=== PATIENT | female | born 1945 | race Caucasian/White ===

== ENCOUNTER → 2018-02-15 10:06 | Outpatient (CLI) | payer MEDICARE, SELFPAY ==
[2018-02-15 10:33] LABS: Add Manual Diff / Slide Review NO; Basophils Percent Auto 1.1 % (0-2); Hematocrit 44.1 % (36-46); Hemoglobin 15.2 g/dL (12.0-16.0); Lymphocytes Percent Auto 35.4 % (25-40); Mean Corpuscular HGB Conc 34.4 % (30-36); Mean Corpuscular Hemoglobin 29.1 PG (26-34); Mean Corpuscular Volume 84.7 fL (80-100); Monocytes Percent Auto 10.3 % (3-14); Neutrophils Absolute Auto 2200 /uL (3000-5900); Neutrophils Percent Auto 48.2 % (50-75); Platelet Count 191 X10^3/uL (150-400); Red Blood Cell Count 5.21 X10^6/uL (4.0-5.2); White Blood Cell Count 4.5 X10^3/uL (4.5-11.0)
[2018-02-15 11:18] LABS: Alanine Aminotransferase 37 IU/L (9-52); Albumin 4.4 g/dL (3.5-5.0); Albumin Globulin Ratio 1.5 (1.0-2.8); Alkaline Phosphatase 56 U/L (38-126); Aspartate Aminotransferase 32 IU/L (14-36); BUN Creatinine Ratio 21.4 (6-22); Bilirubin Total 1.3 mg/dL (0.2-1.3); Calcium 9.4 mg/dL (8.4-10.2); Creatine Kinase 43 U/L (30-135); Estimated Glomerular Filt Rate > 60.0 mL/min (>60); Globulin 2.9 g/dL (1.7-4.1); Glucose 109 mg/dL (80-110); HEMOLYSIS 19 (0-50); Potassium 4.2 mmol/L (3.4-5.1); Sodium 139 mmol/L (137-145); Total Protein 7.3 g/dL (6.3-8.2)
[2018-02-15 11:19] LABS: C-Reactive Protein Quant < 0.5 mg/dL (<1.0)
[2018-02-15 11:57] LABS: Free T4, Direct Thyroxine 0.94 ng/dL (0.78-2.19)
[2018-02-15 12:11] LABS: Thyroid Stimulating Hormone 2.05 uIU/mL (0.47-4.68)
[2018-02-15 14:12] LABS: Erythrocyte Sedimentation Rate 2 MM/HR (0-20)
[2018-02-20 22:32] LABS: ANA Screen NEGATIVE (Negative); DNA Antibody Crithidia IFA NEGATIVE (Negative); Rheumatoid Factor <14 IU/mL; Sjogren Antiboday SS-A <1.0 NEG AI (<1.0 NEGATIVE); Sjogren Antiboday SS-B <1.0 NEG AI (<1.0 NEGATIVE); Sm Antibody <1.0 NEG AI (<1.0 NEGATIVE); Sm/RNP Antibody <1.0 NEG AI (<1.0 NEGATIVE)
== END ==
PROVIDERS: PCP Internal Medicine; Visit Provider Internal Medicine
DX: M79.1 Myalgia (principal)
CPT/HCPCS: 36415; 80053; 82550; 84439; 84443; 85025; 85651; 86038; 86140; 86430

== ENCOUNTER → 2018-03-19 16:20 | Outpatient (CLI) | payer MEDICARE, SELFPAY ==
--- NOTE | 2018-03-19 16:22 | DI.RAD.S_ITS ---
PROCEDURE: XR CERVICAL SPINE 2V OR 3V INDICATIONS: neck pain TECHNIQUE: 3 view(s) of the cervical spine were acquired. COMPARISON: None. FINDINGS: Bones: No fractures or dislocations to the C7 level. The lateral masses of C1 appear intact on the odontoid view. No suspicious bony lesions. Disc narrowing and bony spondylosis is present at C3-4, C4-5, C5-6 and C6-7. Mild anterolisthesis at C5-6. Prominent facet arthropathy bilaterally at C5-6. Soft tissues: No prevertebral soft tissue swelling. IMPRESSION: Multilevel degenerative cervical spine disease. Dictated by: Nba Barragan M.D. on 03/19/2018 at 16:48 Approved by: Nba Barragan M.D. on 03/19/2018 at 16:50
--- NOTE | 2018-03-19 16:22 | DI.RAD.S_ITS ---
PROCEDURE: XR PELVIS 1-2V INDICATIONS: pelvic pain TECHNIQUE: One view(s) of the pelvis acquired. COMPARISON: None. FINDINGS: Bones: No fractures or dislocations. No suspicious bony lesions. Mild, symmetrical hip joint space narrowing. Soft tissues: Visualized bowel gas pattern is normal. No suspicious soft tissue calcifications. Surgical clips are present over the left groin. IMPRESSION: Mild degenerative joint disease, otherwise normal pelvis Dictated by: Nba Barragan M.D. on 03/19/2018 at 16:50 Approved by: Nba Barragan M.D. on 03/19/2018 at 16:51
== END ==
PROVIDERS: PCP Internal Medicine; Visit Provider Internal Medicine
DX: M50.30 Other cervical disc degeneration, unspecified cervical region (principal); R10.2 Pelvic and perineal pain
CPT/HCPCS: 72040; 72170

== ENCOUNTER → 2018-04-05 08:04 | Outpatient (CLI) | payer MEDICARE, SELFPAY ==
[2018-04-05 08:55] LABS: Alanine Aminotransferase 33 IU/L (9-52); Albumin 4.3 g/dL (3.5-5.0); Albumin Globulin Ratio 1.5 (1.0-2.8); Alkaline Phosphatase 60 U/L (38-126); Aspartate Aminotransferase 23 IU/L (14-36); BUN Creatinine Ratio 21.4 (6-22); Bilirubin Total 0.9 mg/dL (0.2-1.3); Blood Urea Nitrogen 15 mg/dL (7-17); Calcium 9.4 mg/dL (8.4-10.2); Carbon Dioxide 30 mmol/L (22-32); Chloride 99 mmol/L (98-107); Cholesterol 206 mg/dL (140-199); Estimated Glomerular Filt Rate > 60.0 mL/min (>60); Globulin 2.8 g/dL (1.7-4.1); Glucose 100 mg/dL (80-110); HDL Cholesterol 51 mg/dL (40-60); HEMOLYSIS < 15 (0-50); LDL Cholesterol Calculated 122 mg/dL (<100); Potassium 4.3 mmol/L (3.4-5.1); Sodium 138 mmol/L (137-145); Total Protein 7.1 g/dL (6.3-8.2); Triglycerides 163 mg/dL (35-150)
== END ==
PROVIDERS: PCP Internal Medicine; Visit Provider Internal Medicine
DX: E78.5 Hyperlipidemia, unspecified (principal)
CPT/HCPCS: 36415; 80053; 80061

== ENCOUNTER → 2018-06-26 08:22 | Outpatient (CLI) | payer MEDICARE, SELFPAY ==
--- NOTE | 2018-06-26 | DI.MG.S_ITS ---
BILATERAL DIGITAL SCREENING MAMMOGRAM 3D/2D WITH CAD: 06/26/2018 CLINICAL: Routine screening. Family history of breast cancer. Comparison is made to exams dated: 05/21/2017 mammogram, 05/12/2016 mammogram, and 04/26/2015 mammogram - [facility]. The tissue of both breasts is heterogeneously dense. This may lower the sensitivity of mammography. Current study was also evaluated with a Computer Aided Detection (CAD) system. There is an asymmetry in the left breast middle depth lower region seen on the mediolateral oblique view only. There is architectural distortion associated with the asymmetry. There also is an asymmetry in the left breast posterior depth outer region seen on the craniocaudal view only. There is architectural distortion associated with the asymmetry. No other significant masses, calcifications, or other findings are seen in either breast. IMPRESSION: INCOMPLETE: NEEDS ADDITIONAL IMAGING EVALUATION The asymmetry in the left breast middle depth lower region seen on the mediolateral oblique view only is indeterminate. Additional views with possible ultrasound are recommended. The asymmetry in the left breast posterior depth outer region seen on the craniocaudal view only is indeterminate. Additional views with possible ultrasound are recommended. This exam was interpreted at Station ID: [id number]. NOTE: For mammograms, a report in lay terms will be sent to the patient. Approximately 15% of breast malignancies will not be visualized mammographically. In the management of a palpable breast mass, a negative mammogram must not discourage biopsy of a clinically suspicious lesion. Electronically Signed By: Miah Benoit M.D. ecl/:06/26/2018 23:19:55 copy to: Jimenez Escobar letter sent: Additional Imaging Needed ACR BI-RADS Category 0: Incomplete 3340F
== END ==
PROVIDERS: PCP Internal Medicine
DX: Z12.31 Encounter for screening mammogram for malignant neoplasm of breast (principal); Z80.3 Family history of malignant neoplasm of breast
CPT/HCPCS: 77063; 77067

== ENCOUNTER → 2018-07-17 12:53 | Outpatient (CLI) | payer MEDICARE, SELFPAY ==
--- NOTE | 2018-07-17 12:56 | DI.MG.S_ITS ---
UNILATERAL LEFT DIGITAL DIAGNOSTIC MAMMOGRAM 3D/2D WITH ADDITIONAL VIEWS: 07/17/2018 CLINICAL: Additional evaluation requested from prior study. Comparison is made to exams dated: 06/26/2018 mammogram, 05/21/2017 mammogram, and 05/12/2016 mammogram - [facility]. The tissue of left breast is heterogeneously dense. This may lower the sensitivity of mammography. Previously noted asymmetry in the left breast middle depth lower region seen on the mediolateral oblique view only on comparison screening mammogram and asymmetry in the left breast posterior depth outer region seen on the craniocaudal view only on comparison screening mammogram both largely resolve with additional views and likely represented superimposition of benign anatomic tissues. No other significant masses, calcifications, or other findings are seen in the breast. IMPRESSION: INCOMPLETE: NEEDS ADDITIONAL IMAGING EVALUATION Previously noted asymmetry in the left breast middle depth lower region seen on the mediolateral oblique view only on comparison screening mammogram and asymmetry in the left breast posterior depth outer region seen on the craniocaudal view only on comparison screening mammogram both largely resolve with additional views and likely represented superimposition of benign anatomic tissues. A targeted ultrasound is recommended and is scheduled for 07/18/2018. This exam was interpreted at Station ID: [id number]. NOTE: For mammograms, a report in lay terms will be sent to the patient. Approximately 15% of breast malignancies will not be visualized mammographically. In the management of a palpable breast mass, a negative mammogram must not discourage biopsy of a clinically suspicious lesion. Electronically Signed By: Miah Benoit M.D. ecl/:07/20/2018 21:13:37 copy to: Jimenez Escobar letter sent: Additional Imaging Needed ACR BI-RADS Category 0: Incomplete 3340F
== END ==
PROVIDERS: PCP Internal Medicine
DX: R92.8 Other abnormal and inconclusive findings on diagnostic imaging of breast (principal)
CPT/HCPCS: 77065; G0279

== ENCOUNTER → 2018-07-18 14:18 | Outpatient (CLI) | payer MEDICARE, SELFPAY ==
--- NOTE | 2018-07-18 14:20 | DI.US.S_ITS ---
ULTRASOUND OF LEFT BREAST: 07/18/2018 CLINICAL: Follow up from addtional views. Comparison is made to exams dated: 07/17/2018 mammogram, 06/26/2018 mammogram, and 05/21/2017 mammogram - [facility]. Real-time and Doppler ultrasound of the left breast were performed. [place] scale images of the real-time examination were reviewed. Targeted ultrasound of the lower outer left breast was performed. There is no ultrasound mass or abnormality to correlate with the previously noted asymmetry in the left breast middle depth lower region seen on the mediolateral oblique view only on comparison screening mammogram or the asymmetry in the left breast posterior depth outer region seen on the craniocaudal view only on comparison screening mammogram. These both also largely resolved with additional diagnostic views and likely represented superimposition of benign anatomic tissues. IMPRESSION: NEGATIVE There is no sonographic evidence of malignancy in the imaged left breast. A 1 year screening mammogram is recommended. Patient is advised to return sooner for re-evaluation should she feel anything grow or change. This exam was interpreted at Station ID: [id number]. Electronically Signed By: Miah Benoit M.D. ecl/:07/20/2018 21:15:56 copy to: Jimenez Escobar letter sent: Normal Exam Ultrasound BI-RADS: 1 Negative
== END ==
PROVIDERS: PCP Internal Medicine
DX: R92.8 Other abnormal and inconclusive findings on diagnostic imaging of breast (principal)
CPT/HCPCS: 76642

== ENCOUNTER → 2019-06-30 12:07 | Outpatient (CLI) | payer MEDICARE, SELFPAY ==
--- NOTE | 2019-06-30 | DI.MG.S_ITS ---
BILATERAL DIGITAL SCREENING MAMMOGRAM 3D/2D WITH CAD: 06/30/2019 CLINICAL: Routine screening. Family history of breast cancer. Comparison is made to exams dated: 06/26/2018 mammogram, 05/21/2017 mammogram, and 05/12/2016 mammogram - [facility]. The tissue of both breasts is heterogeneously dense. This may lower the sensitivity of mammography. Current study was also evaluated with a Computer Aided Detection (CAD) system. No significant masses, calcifications, or other findings are seen in either breast. There has been no significant interval change. IMPRESSION: NEGATIVE There is no mammographic evidence of malignancy. A 1 year screening mammogram is recommended. This exam was interpreted at Station ID: [id number]. NOTE: For mammograms, a report in lay terms will be sent to the patient. Approximately 15% of breast malignancies will not be visualized mammographically. In the management of a palpable breast mass, a negative mammogram must not discourage biopsy of a clinically suspicious lesion. Electronically Signed By: Du clement/paresh:06/30/2019 12:39:35 letter sent: Normal Exam ACR BI-RADS Category 1: Negative 3341F
== END ==
PROVIDERS: PCP Internal Medicine
DX: Z12.31 Encounter for screening mammogram for malignant neoplasm of breast (principal); Z80.3 Family history of malignant neoplasm of breast
CPT/HCPCS: 77063; 77067

== ENCOUNTER → 2020-06-16 07:45 | Outpatient (CLI) | payer MEDICARE, SELFPAY ==
[2020-06-16 09:04] LABS: Hemoglobin A1C% w Est Avg Glu 5.8 % (4.0-6.0)
[2020-06-16 09:13] LABS: Add Manual Diff / Slide Review NO; Basophils Absolute Auto 0 /uL (0-100); Basophils Percent Auto 0.5 % (0-2); Eosinophils Absolute Auto 200 /uL (0-450); Eosinophils Percent Auto 4.1 % (2-4); Hematocrit 42.8 % (36-46); Hemoglobin 14.7 g/dL (12.0-16.0); Lymphocytes Absolute Auto 1700 /uL (1100-4500); Lymphocytes Percent Auto 37.4 % (25-40); Mean Corpuscular HGB Conc 34.4 % (30-36); Mean Corpuscular Hemoglobin 29.8 PG (26-34); Mean Corpuscular Volume 86.6 fL (80-100); Monocytes Absolute Auto 500 /uL (0-900); Monocytes Percent Auto 10.3 % (3-14); Neutrophils Absolute Auto 2200 /uL (1500-7000); Neutrophils Percent Auto 47.7 % (50-75); Platelet Count 200 X10^3/uL (150-400); Red Blood Cell Count 4.94 X10^6/uL (4.0-5.2); Red Cell Distribution Width 13.9 % (11.6-14.8); White Blood Cell Count 4.6 X10^3/uL (4.5-11.0)
[2020-06-16 09:28] LABS: Alanine Aminotransferase 35 IU/L (<35); Albumin 4.3 g/dL (3.5-5.0); Albumin Globulin Ratio 1.5 (1.0-2.8); Alkaline Phosphatase 59 U/L (38-126); Aspartate Aminotransferase 30 IU/L (14-36); BUN Creatinine Ratio 17.4 (6-22); Bilirubin Total 1.1 mg/dL (0.2-1.3); Blood Urea Nitrogen 12 mg/dL (7-17); Calcium 9.2 mg/dL (8.4-10.2); Carbon Dioxide 31 mmol/L (22-32); Chloride 98 mmol/L (98-107); Cholesterol 188 mg/dL (140-199); Estimated Glomerular Filt Rate > 60.0 mL/min (>60); Globulin 2.9 g/dL (1.7-4.1); Glucose 93 mg/dL (80-110); HDL Cholesterol 48 mg/dL (40-60); HEMOLYSIS < 15 (0-50); LDL Cholesterol Calculated 111 mg/dL (<100); Potassium 3.7 mmol/L (3.4-5.1); Sodium 136 mmol/L (137-145); Total Protein 7.2 g/dL (6.3-8.2); Triglycerides 146 mg/dL (35-150)
== END ==
PROVIDERS: PCP Internal Medicine; Referring Provider Internal Medicine; Visit Provider Internal Medicine
DX: E78.5 Hyperlipidemia, unspecified (principal); I10 Essential (primary) hypertension; R73.09 Other abnormal glucose
CPT/HCPCS: 36415; 80053; 80061; 83036; 85025

== ENCOUNTER → 2020-07-02 11:11 | Outpatient (CLI) | payer MEDICARE, SELFPAY ==
--- NOTE | 2020-07-02 | DI.MG.S_ITS ---
BILATERAL DIGITAL SCREENING MAMMOGRAM 3D/2D WITH CAD: 07/02/2020 CLINICAL: Routine screening. Family history of breast cancer. Comparison is made to exams dated: 06/30/2019 mammogram, 06/26/2018 mammogram, 05/21/2017 mammogram, 05/12/2016 mammogram, 04/02/2012 mammogram, and 04/06/2014 mammogram - [facility]. The tissue of both breasts is heterogeneously dense. This may lower the sensitivity of mammography. Current study was also evaluated with a Computer Aided Detection (CAD) system. No significant masses, calcifications, or other findings are seen in either breast. There has been no significant interval change. IMPRESSION: NEGATIVE There is no mammographic evidence of malignancy. A 1 year screening mammogram is recommended. This exam was interpreted at Station ID: [id number]. NOTE: For mammograms, a report in lay terms will be sent to the patient. Approximately 15% of breast malignancies will not be visualized mammographically. In the management of a palpable breast mass, a negative mammogram must not discourage biopsy of a clinically suspicious lesion. Electronically Signed By: Du clement/paresh:07/02/2020 12:58:39 letter sent: Normal Exam ACR BI-RADS Category 1: Negative 3341F
== END ==
PROVIDERS: PCP Internal Medicine; Referring Provider Internal Medicine; Visit Provider Internal Medicine
DX: Z12.31 Encounter for screening mammogram for malignant neoplasm of breast (principal); Z80.3 Family history of malignant neoplasm of breast
CPT/HCPCS: 77063; 77067

== ENCOUNTER → 2021-05-24 13:19 | Outpatient (CLI) | payer MEDICARE, SELFPAY ==
[2021-05-24 14:49] LABS: Alanine Aminotransferase 33 IU/L (<35); Albumin 4.8 g/dL (3.5-5.0); Albumin Globulin Ratio 1.5 (1.0-2.8); Alkaline Phosphatase 54 U/L (38-126); Aspartate Aminotransferase 39 IU/L (14-36); BUN Creatinine Ratio 25.4 (6-22); Bilirubin Total 1.2 mg/dL (0.2-1.3); Blood Urea Nitrogen 18 mg/dL (7-17); C-Reactive Protein Quant < 0.5 mg/dL (<1.0); Calcium 9.7 mg/dL (8.4-10.2); Carbon Dioxide 25 mmol/L (22-32); Chloride 102 mmol/L (98-107); Creatine Kinase 45 U/L (30-135); Estimated Glomerular Filt Rate > 60.0 mL/min (>60); Globulin 3.3 g/dL (1.7-4.1); Glucose 103 mg/dL (80-110); HEMOLYSIS 58 (0-50); Potassium 4.4 mmol/L (3.4-5.1); Sodium 137 mmol/L (137-145); Total Protein 8.1 g/dL (6.3-8.2)
[2021-05-24 14:54] LABS: Erythrocyte Sedimentation Rate 2 MM/HR (0-20)
[2021-05-24 16:21] LABS: TSH w/ Reflex to FT4 2.15 uIU/mL (0.47-4.68)
== END ==
PROVIDERS: PCP Internal Medicine; Referring Provider Internal Medicine; Visit Provider Internal Medicine
DX: M79.10 Myalgia, unspecified site (principal); E78.2 Mixed hyperlipidemia; D86.9 Sarcoidosis, unspecified
CPT/HCPCS: 36415; 80053; 82550; 84443; 85651; 86140

== ENCOUNTER 2021-06-15 14:00 | Emergency (ER) | payer MEDICARE, SELFPAY ==
[2021-06-15 14:00] VITALS: BP 143/70; PULSE 87; RESP 18; TEMP 37.3; O2SAT 99; BMI 27.7
--- NOTE | 2021-06-15 14:15 | DI.CT.S_ITS ---
PROCEDURE: CT HEAD/BRAIN WO CON INDICATIONS: syncopal episode unknown if hit head TECHNIQUE: Noncontrast 4.5 mm thick angled axial sections acquired from the foramen magnum to the vertex, with coronal and sagittal reformats. For radiation dose reduction, the following was used: automated exposure control, adjustment of mA and/or kV according to patient size. COMPARISON: [facility], CT, ORBITS W&WO CONTRAST, 04/23/2017, 10:12. [facility], CT, HEAD WITHOUT CONTRAST, 01/27/2009, 21:44. FINDINGS: Image quality: Mild streak artifact can be seen through the skull base. CSF spaces: Basal cisterns are patent. No extra-axial fluid collections. The ventricles are symmetric in size and shape. Brain: No intracranial bleeds or masses. There is cerebral volume loss for age, with resultant ventricular and sulcal prominence. There are periventricular and deep white matter chronic small vessel ischemic changes. There is intracranial internal carotid artery atherosclerosis. Skull and face: Calvarium and visualized facial bones appear intact, without suspicious lesions. Sinuses: Visualized sinuses and mastoids are clear. IMPRESSION: Unremarkable intracranial study, without intracranial hemorrhage or other acute abnormality. Note is made of age-appropriate brain parenchymal volume loss and chronic small vessel ischemic changes. Dictated by: Sunny Malik M.D. on 06/15/2021 at 13:53 Approved by: Sunny Malik M.D. on 06/15/2021 at 13:54
[2021-06-15 14:32] LABS: COVID19 -Nasal RAPID POSITIVE (Negative)
[2021-06-15 14:41] LABS: Add Manual Diff / Slide Review NO; Basophils Absolute Auto 0 /uL (0-100); Basophils Percent Auto 0.5 % (0-2); Eosinophils Absolute Auto 0 /uL (0-450); Eosinophils Percent Auto 0.2 % (2-4); Hematocrit 43.5 % (36-46); Hemoglobin 14.6 g/dL (12.0-16.0); Lymphocytes Absolute Auto 600 /uL (1100-4500); Lymphocytes Percent Auto 10.8 % (25-40); Mean Corpuscular HGB Conc 33.5 % (30-36); Mean Corpuscular Hemoglobin 28.9 PG (26-34); Mean Corpuscular Volume 86.2 fL (80-100); Monocytes Absolute Auto 700 /uL (0-900); Monocytes Percent Auto 11.9 % (3-14); Neutrophils Absolute Auto 4500 /uL (1500-7000); Neutrophils Percent Auto 76.6 % (50-75); Platelet Count 170 X10^3/uL (150-400); Red Blood Cell Count 5.05 X10^6/uL (4.0-5.2); White Blood Cell Count 5.9 X10^3/uL (4.5-11.0)
[2021-06-15 14:52] LABS: BUN Creatinine Ratio 26.9 (6-22); Blood Urea Nitrogen 14 mg/dL (7-17); Calcium 8.9 mg/dL (8.4-10.2); Carbon Dioxide 27 mmol/L (22-32); Chloride 101 mmol/L (98-107); Estimated Glomerular Filt Rate > 60.0 mL/min (>60); Glucose 147 mg/dL (80-110); HEMOLYSIS < 15 (0-50); Potassium 3.3 mmol/L (3.4-5.1); Sodium 135 mmol/L (137-145)
--- NOTE | 2021-06-15 15:21 | ED.GENADULT ---
HPI - General Adult General Chief complaint: Syncope Stated complaint: headache, fever, aches, cough Time Seen by Provider: 06/15/21 14:14 Source: patient Mode of arrival: Ambulatory Limitations: no limitations History of Present Illness HPI narrative: Patient is a 75-year-old female. He is immunized against COVID-19. A couple days ago she did have a seminar with multiple individual was. On Sunday night she started to feel poorly in this has progressed to fevers and aches and a cough and headache over the past couple days. She stated that this morning she was getting out of the shower. She felt very lightheaded. She did pass out. She did not think that she hit her head. Not on anticoagulation. Reports no injuries from the event. Unsure exactly how long she was without consciousness. Currently she is not having any lightheadedness or dizziness. Related Data Home Medications Medication Instructions Recorded Confirmed ASPIRIN (#ASPIRIN) 81 mg PO Q DAY #0 05/22/11 05/23/21 Methylcobalamin (#E82-DDCVOC) 1,000 mcg PO DAILY #0 06/10/13 05/23/21 lactobacillus combination no.8 3 3,000 mmu cells PO DAILY 02/15/18 05/23/21 billion cell capsule (Adult Probiotic) Fish Oil 1 tab PO DAILY 06/21/20 05/23/21 VITAMIN D 1,000 unit PO Q DAY #0 06/21/20 05/23/21 amlodipine 5 mg tablet 5 mg PO DAILY tab 06/21/20 05/23/21 hydrochlorothiazide 25 mg tablet 25 mg PO DAILY tab 06/21/20 05/23/21 acyclovir 400 mg tablet 400 mg PO TID PRN tab 05/23/21 05/23/21 Previous Rx's Medication Instructions Recorded estradiol 0.05 mg/24 hr weekly See Rx Instructions .ROUTE 02/22/21 transdermal patch .COMPLEX #12 each pregabalin 50 mg capsule (Lyrica) 50 mg PO BID #60 cap 05/23/21 ondansetron 4 mg disintegrating 4 mg PO Q6H PRN #10 tab 06/15/21 tablet Allergies Allergy/AdvReac Type Severity Reaction Status Date / Time cephradine [CEPHRADINE] Allergy Mild ITCHY Verified 05/23/21 10:50 hydrocodone [HYDROCODONE] Allergy Mild RASH? Verified 05/23/21 10:50 gabapentin AdvReac Intermediate [place] Verified 05/23/21 12:06 strange Review of Systems Constitutional Constitutional: Reports chills, Reports fever(s) and Reports headache(s) ENT Ears, Nose, Mouth, and Throat: Denies vertigo, Reports dizziness, Reports headache(s) and Reports disequilibrium Cardiovascular Cardiovascular: Denies chest pain and Reports dyspnea Respiratory Respiratory: Reports cough and Reports dyspnea Gastrointestinal Gastrointestinal: Reports as per HPI and Reports system reviewed and no additional complaints, except as documented Genitourinary Genitourinary: Reports system reviewed and no additional complaints, except as documented Musculoskeletal Musculoskeletal: Reports system reviewed and no additional complaints, except as documented Integumentary/Breasts Skin/Breast: Reports system reviewed and no additional complaints, except as documented Neurologic Neurologic: Denies vertigo, Reports dizziness, Reports headache(s) and Reports disequilibrium Hematologic/Lymphatic On Anticoagulants: No Patient History Medical History Essential hypertension (01/23/17) Gastroesophageal reflux disease (05/22/11) History of migraine with aura Hyperlipidemia (05/22/11) Iron deficiency anemia (~2002) Menopause present (07/03/14) Migraine with aura (05/22/11) Osteopenia (07/03/14) Sarcoidosis Spinal stenosis at L4-L5 level Surgical History History of knee replacement Status post cholecystectomy Status post hysterectomy Status post rotator cuff repair Status post tonsillectomy and adenoidectomy Status post tubal ligation Family History Father Family history of early CAD Social History Smoking Status: Former smoker Smoking Status: Former smoker Substance Use Type: does not use Exam Initial Vital Signs Initial Vital Signs: Vital Signs Temperature 99.2 F 06/15/21 14:00 Pulse Rate 87 06/15/21 14:00 Respiratory Rate 18 06/15/21 14:00 Blood Pressure 143/70 H 06/15/21 14:00 Pulse Oximetry 99 06/15/21 14:00 Const General: cooperative and healthy appearing [facility] Head: normal to inspection and normocephalic Resp Auscultation: clear to auscultation bilaterally Cardio Rate: regular rate Skin General: no rashes or lesions noted Neuro General: patient alert, patient awake, patient oriented x3 and moves all extremities Extrem General: normal to inspection and capillary refill normal Psych Appearance: grossly normal and well kempt Scores GCS [place] coma scale eye opening: Spontaneous [place] coma scale verbal response: Orientated [place] coma scale motor response: Obey commands [place] coma scale total score: 15 Course Orders Ordered: ED Orders 06/15/21 14:09 COVID19 -Nasal swab/Pre-Proc Stat 06/15/21 14:15 CT head/brain wo con Stat 06/15/21 14:31 EKG-12 Lead Stat 06/15/21 14:38 Basic Metabolic Panel Stat Complete Blood Count AUTO DIFF Stat Vital Signs Vital signs: Vital Signs - 8 hr 06/15/21 14:00 06/15/21 15:55 Temperature 99.2 F Pulse Rate 87 82 Respiratory Rate 18 Blood Pressure 143/70 H 151/70 H Pulse Oximetry 99 94 Medical Decision Making Medical Records Medical records reviewed: Yes I reviewed the patient's medical records. Lab Data Lab results reviewed: Yes I reviewed the patient's lab results. Result diagrams: 06/15/21 14:38 06/15/21 14:38 Labs: Lab Results 06/15/21 06/15/21 06/15/21 Range/Units 14:09 14:38 14:38 WBC 5.9 (4.5-11.0) X10^3/uL RBC 5.05 (4.0-5.2) X10^6/uL Hgb 14.6 (12.0-16.0) g/dL Hct 43.5 (36-46) % MCV 86.2 (80-100) fL MCH 28.9 (26-34) PG MCHC 33.5 (30-36) % RDW 14.0 (11.6-14.8) % Plt Count 170 (150-400) X10^3/uL Neut % (Auto) 76.6 H (50-75) % Lymph % (Auto) 10.8 L (25-40) % [place] % (Auto) 11.9 (3-14) % Eos % (Auto) 0.2 L (2-4) % Baso % (Auto) 0.5 (0-2) % Neut # (Auto) 4500 (3168-0991) /uL Lymph # (Auto) 600 L (2374-5220) /uL [place] # (Auto) 700 (0-900) /uL Eos # (Auto) 0 (0-450) /uL Baso # (Auto) 0 (0-100) /uL Sodium 135 L (137-145) mmol/L Potassium 3.3 L (3.4-5.1) mmol/L Chloride 101 (98-107) mmol/L Carbon Dioxide 27 (22-32) mmol/L BUN 14 (7-17) mg/dL Creatinine 0.52 (0.52-1.04) mg/dL Estimated GFR > 60.0 (>60) mL/min BUN/Creatinine Ratio 26.9 H (6-22) Glucose 147 H (80-110) mg/dL Calcium 8.9 (8.4-10.2) mg/dL SARS-CoV-2 (PCR) Positive H (Negative) Imaging Data CT scan - head: Radiologist's Impression: [address] [id number] Scan ReportSigned Patient: Nissa Trejo GMR#: [id number]: 7Acct:[id number]/Sex: 75 / FDate of Service: 06/15/21Loc: EDAccession Number: [id number] Procedure: CT head/brain wo con Ordering Provider: Miguel Vyas D.O. PROCEDURE: CT HEAD/BRAIN WO CON INDICATIONS: syncopal episode unknown if hit head TECHNIQUE: Noncontrast 4.5 mm thick angled axial sections acquired from the foramen magnum to the vertex, with coronal and sagittal reformats. For radiation dose reduction, the following was used: automated exposure control, adjustment of mA and/or kV according to patient size. COMPARISON: [facility], CT, ORBITS W&WO CONTRAST, 04/23/2017, 10:12. [facility], CT, HEAD WITHOUT CONTRAST, 01/27/2009, 21:44. FINDINGS: Image quality: Mild streak artifact can be seen through the skull base. CSF spaces: Basal cisterns are patent. No extra-axial fluid collections. The ventricles are symmetric in size and shape. Brain: No intracranial bleeds or masses. There is cerebral volume loss for age, with resultant ventricular and sulcal prominence. There are periventricular and deep white matter chronic small vessel ischemic changes. There is intracranial internal carotid artery atherosclerosis. Skull and face: Calvarium and visualized facial bones appear intact, without suspicious lesions. Sinuses: Visualized sinuses and mastoids are clear. IMPRESSION: Unremarkable intracranial study, without intracranial hemorrhage or other acute abnormality. Note is made of age-appropriate brain parenchymal volume loss and chronic small vessel ischemic changes. Dictated by: Sunny Malik M.D. on 06/15/2021 at 13:53 Approved by: Sunny Malik M.D. on 06/15/2021 at 13:54 ECG Data Attestation: I personally reviewed and interpreted this ECG as follows: Interpretation: Sinus rhythm Ventricular rate 82 Normal axis Normal QRS Normal QTC No ST T wave changes MDM Narrative Medical decision making narrative: Patient is COVID positive. Not hypoxic. Clear lung exam. I suspect that the events that led her to the emergency department today are related to her current COVID illness. No indication for antibiotics. I did tell her that she could contact her primary doctor to discuss potentially having the monoclonal antibody infusion. She was given strict return precautions and follow-up instructions. She expressed understanding and agreement. Discharge Plan Departure Patient Disposition: Home Clinical Impression: COVID-19, Syncope Instructions: DI for Syncope in Adults (Fainting), DI for COVID-19 (Suspected or Confirmed ) Activity Restrictions/Additional Instructions: you can take Tylenol for any fevers. Continue the rest of your medications as directed. Be sure to increase your fluid intake. Contact your primary doctor for follow-up. Return to the emergency department for any new or worsening symptoms. Prescriptions: New ondansetron 4 mg tablet,disintegrating 4 mg PO Q6H PRN (Reason: nausea and vomiting) Qty: 10 RF: 0 No Action ASPIRIN (#ASPIRIN) 81 mg PO Q DAY Qty: 0 RF: 0 Methylcobalamin (#Y22-[id number]) 1,000 mcg PO DAILY Qty: 0 RF: 0 VITAMIN D 1,000 unit PO Q DAY Qty: 0 RF: 0 estradiol 0.05 mg/24 hr patch weekly See Rx Instructions .ROUTE .COMPLEX Qty: 12 RF: 3 lactobacillus combination no.8 [Adult Probiotic] 3 billion cell capsule 3,000 mmu cells PO DAILY RF: 0 amlodipine 5 mg tablet 5 mg PO DAILY RF: 0 hydrochlorothiazide 25 mg tablet 25 mg PO DAILY RF: 0 Fish Oil 1,000 mg 1 tab PO DAILY RF: 0 acyclovir 400 mg tablet 400 mg PO TID PRN (Reason: cold sores) RF: 0 pregabalin [Lyrica] 50 mg capsule 50 mg PO BID Qty: 60 RF: 0 Referrals: Neo Shaffer MD [Primary Care Provider] -
[2021-06-15 15:55] VITALS: BP 151/70; PULSE 82; O2SAT 94
== END 2021-06-15 16:07 | disposition home or self-care (01) ==
PROVIDERS: Emergency Provider Emergency Medicine; PCP Internal Medicine
DX: U07.1 COVID-19 (principal); R55 Syncope and collapse; S09.90XA Unspecified injury of head, initial encounter; R05 Cough; R51.9 Headache, unspecified; R50.9 Fever, unspecified; R42 Dizziness and giddiness
CPT/HCPCS: 36415; 70450; 80048; 85025; 87635; 93005; 93010; 99284; C9803

== ENCOUNTER → 2022-03-15 14:57 | Outpatient (CLI) | payer MEDICARE, SELFPAY ==
--- NOTE | 2022-03-15 | DI.MG.S_ITS ---
BILATERAL DIGITAL SCREENING MAMMOGRAM 3D/2D WITH CAD: 03/15/2022 CLINICAL: Routine screening. Family history of breast cancer. Comparison is made to exams dated: 07/02/2020 mammogram, 06/30/2019 mammogram, and 06/26/2018 mammogram - [facility]. The tissue of both breasts is heterogeneously dense. This may lower the sensitivity of mammography. Current study was also evaluated with a Computer Aided Detection (CAD) system. No significant masses, calcifications, or other findings are seen in either breast. There has been no significant interval change. IMPRESSION: NEGATIVE There is no mammographic evidence of malignancy. A 1 year screening mammogram is recommended. This exam was interpreted at Station ID: [id number]. NOTE: For mammograms, a report in lay terms will be sent to the patient. Approximately 15% of breast malignancies will not be visualized mammographically. In the management of a palpable breast mass, a negative mammogram must not discourage biopsy of a clinically suspicious lesion. Electronically Signed By: Naveen orozco/paresh:03/16/2022 08:57:19 letter sent: Normal Exam ACR BI-RADS Category 1: Negative 3341F
== END ==
PROVIDERS: PCP Internal Medicine; Referring Provider Internal Medicine; Visit Provider Internal Medicine
DX: Z12.31 Encounter for screening mammogram for malignant neoplasm of breast (principal); Z80.3 Family history of malignant neoplasm of breast
CPT/HCPCS: 77063; 77067

== ENCOUNTER → 2023-03-16 11:00 | Outpatient (CLI) | payer MEDICARE, SELFPAY ==
--- NOTE | 2023-03-16 | DI.MG.S_ITS ---
BILATERAL DIGITAL SCREENING MAMMOGRAM 3D/2D WITH CAD: 03/16/2023 CLINICAL: Routine screening. Family history of breast cancer. Comparison is made to exams dated: 03/15/2022 mammogram, 07/02/2020 mammogram, and 06/30/2019 mammogram - [facility]. Both breasts are heterogeneously dense, which may obscure small masses (category c / 51-75% glandular tissue). Current study was also evaluated with a Computer Aided Detection (CAD) system. No significant masses, calcifications, or other findings are seen in either breast. There has been no significant interval change. IMPRESSION: NEGATIVE There is no mammographic evidence of malignancy. A 1 year screening mammogram is recommended. Based on the Tyrer Cuzick model (a risk assessment model) the patient's lifetime risk is 7.6% and her 10 year risk is 0.0%. According to the ACR, ACS, and NCCN guidelines, an annual breast MRI exam along with mammogram is recommended if the patient's lifetime risk is 20% or greater. This exam was interpreted at Station ID: [id number]. NOTE: For mammograms, a report in lay terms will be sent to the patient. Approximately 15% of breast malignancies will not be visualized mammographically. In the management of a palpable breast mass, a negative mammogram must not discourage biopsy of a clinically suspicious lesion. Electronically Signed By: Du clement/paresh:03/16/2023 17:16:51 letter sent: Normal Exam ACR BI-RADS Category 1: Negative 3341F
== END ==
PROVIDERS: PCP Internal Medicine; Referring Provider Internal Medicine; Visit Provider Internal Medicine
DX: Z12.31 Encounter for screening mammogram for malignant neoplasm of breast (principal); Z80.3 Family history of malignant neoplasm of breast
CPT/HCPCS: 77063; 77067

== ENCOUNTER → 2024-03-17 09:59 | Outpatient (CLI) | payer MEDICARE, SELFPAY ==
--- NOTE | 2024-03-17 10:00 | DI.MG.S_ITS ---
BILATERAL DIGITAL SCREENING MAMMOGRAM 3D/2D WITH CAD: 03/17/2024 CLINICAL: Routine screening. Family history of breast cancer. Comparison is made to exams dated: 03/16/2023 mammogram, 03/15/2022 mammogram, and 07/02/2020 mammogram - [facility]. Both breasts are heterogeneously dense, which may obscure small masses (category c / 51-75% glandular tissue). Current study was also evaluated with a Computer Aided Detection (CAD) system. No significant masses, calcifications, or other findings are seen in either breast. There has been no significant interval change. IMPRESSION: NEGATIVE There is no mammographic evidence of malignancy. A 1 year screening mammogram is recommended. Based on the Tyrer Cuzick model (a risk assessment model) the patient's lifetime risk is 6.9% and her 10 year risk is 0.0%. According to the ACR, ACS, and NCCN guidelines, an annual breast MRI exam along with mammogram is recommended if the patient's lifetime risk is 20% or greater. This exam was interpreted at Station ID: [id number]. NOTE: For mammograms, a report in lay terms will be sent to the patient. Approximately 15% of breast malignancies will not be visualized mammographically. In the management of a palpable breast mass, a negative mammogram must not discourage biopsy of a clinically suspicious lesion. Electronically Signed By: Yung goff/paresh:03/17/2024 10:36:48 copy to: Dr. Alberts, Dr. Alberts, ph: [phone] letter sent: Normal Exam ACR BI-RADS Category 1: Negative [id number]
== END ==
LOC: MAMMO 10:00
PROVIDERS: PCP Internal Medicine; Referring Provider Internal Medicine; Visit Provider Internal Medicine
DX: Z12.31 Encounter for screening mammogram for malignant neoplasm of breast (principal); Z80.3 Family history of malignant neoplasm of breast; R92.333 Mammographic heterogeneous density, bilateral breasts
CPT/HCPCS: 77063; 77067